=== PATIENT | male | born 1975 | race American Indian/Alaskan Native ===

== ENCOUNTER 2017-10-26 17:15 | Emergency (ER) | payer OTHER ==
[2017-10-26] MEDS ORDERED: DILAUDID IV ONE (19:51)
[2017-10-26] MEDS ORDERED: TORADOL IV ONE (19:51)
[2017-10-26] MEDS ORDERED: NACL 0.9% 1000 ML 1,000 ML IV ONE (19:51)
--- NOTE | 2017-10-26 19:52 | Emergency Department Report ---
ED General Adult HPI - General Chief complaint: Back Pain/Injury Stated complaint: SEVERE BACK PAIN Time Seen by Provider: 10/26/17 19:47 Source: patient, RN notes reviewed Mode of arrival: Ambulatory Limitations: No Limitations - History of Present Illness Initial comments: This is a 42-year-old male who was previously unknown to this provider, his primary care doctor is Dr. Avila. He presents to the ER with right lower back pain, right flank pain, right lower quadrant pain which has been present for 2 days. There is no trauma. The pain is sharp. It does not radiate anywhere, with the exception of moving from the back to the front. Initially had no decreasing factors, however patient subsequently was given hydromorphone and Toradol and the ER by myself and these improved his symptoms. He denies testicular pain, and he denies irritative, obstructive urinary symptoms. He denies chest pain or shortness of breath, and he denies saddle anesthesia, bladder, bowel retention/incontinence -: Gradual Location: back Radiation: abdomen Quality: aching Consistency: constant Improves with: medication Worsens with: movement Associated Symptoms: denies: confusion, chest pain, cough, diaphoresis, fever/ chills, headaches, loss of appetite, malaise, nausea/vomiting, rash, seizure, shortness of breath, syncope, weakness - Related Data Previous Rx's Medication Instructions Recorded Last Taken Type Acetaminophen [Tylenol Arthritis] 650 mg PO Q6HR PRN #30 tablet.er 10/26/17 Unknown Rx Ketorolac [Toradol] 10 mg PO Q6H PRN #20 tablet 10/26/17 Unknown Rx Ondansetron [Zofran Odt] 4 mg PO Q8HR PRN #20 tab.rapdis 10/26/17 Unknown Rx Tamsulosin [Flomax] 0.4 mg PO QDAY #30 cap 10/26/17 Unknown Rx oxyCODONE [Roxicodone] 5 mg PO Q6HR PRN #15 tablet 10/26/17 Unknown Rx Allergies Allergy/AdvReac Type Severity Reaction Status Date / Time tuna oil Allergy Hives Verified 10/26/17 17:33 ED Review of Systems ROS: Stated complaint: SEVERE BACK PAIN Other details as noted in HPI ED Past Medical Hx - Past Medical History Previous Medical History?: Yes Additional medical history: pneumonia, Lung scarring - Surgical History Past Surgical History?: No - Social History Smoking Status: Former Smoker Substance Use Type: Alcohol - Medications Home Medications: Home Medications Medication Instructions Recorded Confirmed Last Taken Type Acetaminophen [Tylenol Arthritis] 650 mg PO Q6HR PRN #30 tablet.er 10/26/17 Unknown Rx Ketorolac [Toradol] 10 mg PO Q6H PRN #20 tablet 10/26/17 Unknown Rx Ondansetron [Zofran Odt] 4 mg PO Q8HR PRN #20 tab.rapdis 10/26/17 Unknown Rx Tamsulosin [Flomax] 0.4 mg PO QDAY #30 cap 10/26/17 Unknown Rx oxyCODONE [Roxicodone] 5 mg PO Q6HR PRN #15 tablet 10/26/17 Unknown Rx ED Physical Exam - General Limitations: No Limitations General appearance: alert, in distress - Head Head exam: Present: atraumatic, normocephalic - Eye Eye exam: Present: normal appearance, EOMI. Absent: nystagmus - ENT ENT exam: Present: normal exam, normal orophraynx, mucous membranes moist, normal external ear exam - Neck Neck exam: Present: normal inspection, full ROM - Respiratory Respiratory exam: Present: normal lung sounds bilaterally. Absent: respiratory distress - Cardiovascular Cardiovascular Exam: Present: regular rate, normal rhythm, normal heart sounds. Absent: systolic murmur, diastolic murmur, rubs, gallop - GI/Abdominal GI/Abdominal exam: Present: soft, tenderness, normal bowel sounds, other (there is right flank tenderness, there is right lower quadrant tenderness). Absent: distended, guarding, rebound, rigid, pulsatile mass - Rectal Rectal exam: Present: deferred - Extremities Exam Extremities exam: Present: normal inspection, full ROM. Absent: pedal edema, joint swelling, calf tenderness - Back Exam Back exam: Present: normal inspection, full ROM, CVA tenderness (R), paraspinal tenderness. Absent: tenderness - Neurological Exam Neurological exam: Present: alert, oriented X3, CN II-XII intact, normal gait, other (Extraocular movements intact. Tongue midline. No facial droop. Facial sensation intact to light touch in the V1, V2, V3 distribution bilaterally. 5 and 5 strength in 4 extremities.. Sensation is intact to light touch in 4 extremities.). Absent: motor sensory deficit - Psychiatric Psychiatric exam: Present: normal affect, normal mood - Skin Skin exam: Present: warm, dry, intact, normal color. Absent: rash ED Course Vital Signs 10/26/17 17:33 Temperature 97.8 F Pulse Rate 62 Respiratory 18 Rate Blood Pressure 115/57 O2 Sat by Pulse 99 Oximetry - Reevaluation(s) Reevaluation #1: 10/26/17 21:24 Differential diagnosis, including but not limited to: Mechanical back pain, renal colic, malignancy, AAA, appendicitis Assessment and plan: 42-year-old male with migratory back pain, no clinical indication epidural compression syndrome, most likely first episode of renal colic. He is afebrile with reassuring vital signs, doubt AAA, patient has equal pulses in bilateral upper and lower extremities. He felt much improved after pain medication, the CT scan is pending. Urinalysis demonstrates red blood cells, 54, and some whites. It is most likely suggestive of renal colic. 10/26/17 21:24 Reevaluation #2: 10/26/17 23:06 As expected, CT scan demonstrates right-sided kidney stone. Belly soft on repeat exam. No active vomiting. Patient reports that he feels much improved. Vital signs remained stable and unremarkable. Patient will be discharged with nausea medication, pain medication, tamsulosin. White blood cells are appreciated in the urinalysis sample, there are no leukocytes, there is negative nitrites, there are no bacteria, therefore does not appear to be consistent with urinary tract infection, especially given lack of symptoms. ED Medical Decision Making - Lab Data Result diagrams: 10/26/17 20:30 10/26/17 20:30 Vital Signs 10/26/17 17:33 Temperature 97.8 F Pulse Rate 62 Respiratory 18 Rate Blood Pressure 115/57 O2 Sat by Pulse 99 Oximetry Lab Results 10/26/17 10/26/17 10/26/17 Range/Units 20:30 20:30 Unknown WBC 6.1 (4.5-11.0) K/mm3 RBC 5.09 H (3.65-5.03) M/mm3 Hgb 13.8 (11.8-15.2) gm/dl Hct 41.6 (35.5-45.6) % MCV 82 L (84-94) fl MCH 27 L (28-32) pg MCHC 33 (32-34) % RDW 13.9 (13.2-15.2) % Plt Count 222 (140-440) K/mm3 Lymph % (Auto) 11.6 L (13.4-35.0) % [place] % (Auto) 7.0 (0.0-7.3) % Eos % (Auto) 0.9 (0.0-4.3) % Baso % (Auto) 0.6 (0.0-1.8) % Lymph # 0.7 L (1.2-5.4) K/mm3 [place] # 0.4 (0.0-0.8) K/mm3 Eos # 0.1 (0.0-0.4) K/mm3 Baso # 0.0 (0.0-0.1) K/mm3 Seg Neutrophils % 79.9 H (40.0-70.0) % Seg Neutrophils # 4.9 (1.8-7.7) K/mm3 Sodium 137 (137-145) mmol/L Potassium 4.5 (3.6-5.0) mmol/L Chloride 101.1 (98-107) mmol/L Carbon Dioxide 21 L (22-30) mmol/L Anion Gap 19 mmol/L BUN 22 H (9-20) mg/dL Creatinine 1.4 (0.8-1.5) mg/dL Estimated GFR > 60 ml/min BUN/Creatinine Ratio 16 % Glucose 77 (75-100) mg/dL Calcium 9.0 (8.4-10.2) mg/dL Total Bilirubin 0.40 (0.1-1.2) mg/dL AST 39 (5-40) units/L ALT 42 (7-56) units/L Alkaline Phosphatase 80 (35-129) units/L Total Protein 8.2 (6.3-8.2) g/dL Albumin 3.9 (3.9-5) g/dL Albumin/Globulin Ratio 0.9 % Urine Color Yellow (Yellow) Urine Turbidity Clear (Clear) Urine pH 5.0 (5.0-7.0) Ur Specific [place] 1.031 H (1.003-1.030) Urine Protein 30 mg/dl (Negative) mg/dL Urine Glucose (UA) Neg (Negative) mg/dL Urine Ketones Neg (Negative) mg/dL Urine Blood Mod (Negative) Urine Nitrite Neg (Negative) Urine Bilirubin Neg (Negative) Urine Urobilinogen 2.0 (<2.0) mg/dL Ur Leukocyte Esterase Neg (Negative) Urine WBC (Auto) 12.0 H (0.0-6.0) /HPF Urine RBC (Auto) 54.0 (0.0-6.0) /HPF U Epithel Cells (Auto) 1.0 (0-13.0) /HPF Calcium Oxalate Crystal 1+ Urine Mucus 3+ /HPF - Radiology Data Radiology results: report reviewed, image reviewed Print Report Referring Physician: RED LINDSAY Patient Name: JYOTHI BLOCK Date of : 1975 Sex: Male Report Date: 2017-10-26 Report Status: [place] [address] Cat Scan Report Signed Patient: JYOTHI BLOCK MR#: [id number] : 1975 Acct:[id number] Age/Sex: 42 / M ADM Date: 10/26/17 Loc: ED Attending Dr: Ordering Physician: RED LINDSAY MD Date of Service: 10/26/17 Procedure(s): CT abdomen pelvis w con Accession Number(s): [id number] cc: RED LINDSAY MD FINAL REPORT PROCEDURE: CT ABDOMEN PELVIS W CON TECHNIQUE: Computerized axial tomography of the abdomen and pelvis was performed after the IV injection of iodinated nonionic contrast. HISTORY: rlq pain, IV and oral contrast COMPARISON: No prior studies are available for comparison. FINDINGS: [id number] degree cylindrical bronchiectatic changes are noted involving left lower lobe with areas of scarring of left lower lobe parenchyma. Pancreas moderate amount of residual stool is noted. Appendix is normal. And adrenal glands are within normal limits. Bilateral kidneys demonstrate uniform enhancement. A 2 millimeter obstructive calculus is noted in the distal right ureter about 1 centimeter proximal to the vesicoureteral junction with mild right hydronephrosis and hydroureter. 2 millimeter nonobstructive calculus is noted in the left kidney. Aorta is of normal caliber. There is no free fluid or free air. Gallbladder is unremarkable. Small bowel loops are within normal limits. There is mild degree splenomegaly. IMPRESSION: Distal right ureteral calculus with mild degree right hydronephrosis 2 millimeter nonobstructive left renal calculus Moderate amount of residual stool Left lower lobe bronchiectasis with parenchymal scarring Mild degree splenomegaly Transcribed By: UBC Dictated By: CHARANJIT LUNA Electronically Authenticated By: CHARANJIT LUNA Signed Date/Time: 10/26/17 7200 Critical care attestation.: If time is entered above; I have spent that time in minutes in the direct care of this critically ill patient, excluding procedure time. ED Disposition Clinical Impression: Renal colic on right side Disposition: - TO HOME OR SELFCARE Is pt being admited?: No Does the pt Need Aspirin: No Condition: Stable Instructions: Renal Colic (ED) Additional Instructions: Take the pain medication, nausea medication as directed. Follow up with the urology specialist within the next 7-[address] scan demonstrated an obstructing kidney stone on the right side. This is most likely to pass. However, it is very important to follow-up with outpatient urology as directed. Not following up as recommended a result in loss of functionality of the kidney. Return to the ER right away with pain, worsened pain, migration of pain , fevers, chills, lethargy, irritability, projectile vomiting, change in mental status, confusion, inability to tolerate liquid feeds. If taking oxycodone for pain, do not drive, consume alcohol, or make important decisions. Referrals: LINWOOD JAIN, PAC-C [Primary Care Provider] - 3-5 Days CECE MONROY MD [Staff Physician] - 3-5 Days
[2017-10-26 20:42] LABS: Bilirubin,Urine NEG (Negative); Blood,Urine MOD (Negative); Calcium Oxalate Crystals,Urine 1+; Color,Urine Yellow (Yellow); Mucus,Urine 3+ /HPF; Nitrite,Urine NEG (Negative)
[2017-10-26 20:56] LABS: Basophils % (Auto) 0.6 % (0.0-1.8); Eosinophils # (Auto) 0.1 K/mm3 (0.0-0.4); Eosinophils % (Auto) 0.9 % (0.0-4.3); Hematocrit 41.6 % (35.5-45.6); Hemoglobin 13.8 gm/dl (11.8-15.2); Lymphocytes # (Auto) 0.7 K/mm3 (1.2-5.4); Lymphocytes % (Auto) 11.6 % (13.4-35.0); Mean Corpuscular HGB Conc 33 % (32-34); Mean Corpuscular Hemoglobin 27 pg (28-32); Mean Corpuscular Volume 82 fl (84-94); Monocytes # (Auto) 0.4 K/mm3 (0.0-0.8); Platelet Count 222 K/mm3 (140-440); Red Blood Count 5.09 M/mm3 (3.65-5.03); Red Cell Distribution Width 13.9 % (13.2-15.2)
[2017-10-26 21:05] LABS: Alanine Aminotransferase 42 units/L (7-56); Albumin 3.9 g/dL (3.9-5); BUN/Creatinine Ratio 16; Blood Urea Nitrogen 22 mg/dL (9-20); Hemolysis Index 4
--- NOTE | 2017-10-26 22:52 | Cat Scan Report ---
FINAL REPORT PROCEDURE: CT ABDOMEN PELVIS W CON TECHNIQUE: Computerized axial tomography of the abdomen and pelvis was performed after the IV injection of iodinated nonionic contrast. HISTORY: rlq pain, IV and oral contrast COMPARISON: No prior studies are available for comparison. FINDINGS: [id number] degree cylindrical bronchiectatic changes are noted involving left lower lobe with areas of scarring of left lower lobe parenchyma. Pancreas moderate amount of residual stool is noted. Appendix is normal. And adrenal glands are within normal limits. Bilateral kidneys demonstrate uniform enhancement. A 2 millimeter obstructive calculus is noted in the distal right ureter about 1 centimeter proximal to the vesicoureteral junction with mild right hydronephrosis and hydroureter. 2 millimeter nonobstructive calculus is noted in the left kidney. Aorta is of normal caliber. There is no free fluid or free air. Gallbladder is unremarkable. Small bowel loops are within normal limits. There is mild degree splenomegaly. IMPRESSION: Distal right ureteral calculus with mild degree right hydronephrosis 2 millimeter nonobstructive left renal calculus Moderate amount of residual stool Left lower lobe bronchiectasis with parenchymal scarring Mild degree splenomegaly
[2017-10-26 23:29] VITALS: BP 111/61
== END 2017-10-26 23:34 | disposition home or self-care (01) ==
LOC: ED 17:15
DX: N23 Unspecified renal colic (principal); Z91.018 Allergy to other foods; Z87.891 Personal history of nicotine dependence
CPT/HCPCS: 36415; 74177; 80053; 81001; 85025; 96361; 96374; 96375; 99284; J1170; J1885; J7030; Q9967